=== PATIENT | female | born 1985 | race American Indian/Alaskan Native ===

== ENCOUNTER 2021-01-10 09:19 | Emergency (ER) | payer MEDICARE ==
--- NOTE | 2021-01-10 10:40 | Event Note ---
ED Screening Note Date of service: 01/10/21 Time: 10:39 ED Screening Note: 35-year-old female brought in by EMS for disturbance. Has a history of schizophrenia and refuses to answer any questions. This initial assessment/diagnostic orders/clinical plan/treatment(s) is/are subject to change based on patients health status, clinical progression and re- assessment by fellow clinical providers in the ED. Further treatment and workup at subsequent clinical providers discretion. Patient/guardian urged not to elope from the ED as their condition may be serious if not clinically assessed and managed. Initial orders include:
[2021-01-10 11:39] LABS: Basophils # (Auto) 0.2 K/mm3 (0.0-0.1); Blood Urea Nitrogen 7 mg/dL (7-17); Calcium 9.4 mg/dL (8.4-10.2); Eosinophils % (Auto) 0.7 % (0.0-4.3); Hematocrit 37.5 % (30.3-42.9); Hemoglobin 11.7 gm/dl (10.1-14.3); Hemolysis Index 5; Lymphocytes # (Auto) 1.4 K/mm3 (1.2-5.4); Lymphocytes % (Auto) 22.5 % (13.4-35.0); Mean Corpuscular HGB Conc 31 % (30-34); Monocytes # (Auto) 0.4 K/mm3 (0.0-0.8); Monocytes % (Auto) 6.8 % (0.0-7.3); Platelet Count 289 K/mm3 (140-440); Red Blood Count 5.64 M/mm3 (3.65-5.03); Red Cell Distribution Width 16.6 % (13.2-15.2)
[2021-01-10 11:48] LABS: BUN/Creatinine Ratio 10
[2021-01-10 11:49] LABS: Mean Corpuscular Volume 67 fl (79-97)
[2021-01-10] MEDS ORDERED: POTASSIUM CHLORIDE ER 20 MEQ TAB PO ONE (17:54)
--- NOTE | 2021-01-10 17:56 | Emergency Department Report ---
HPI - General Chief Complaint: Psych Time Seen by Provider: 01/10/21 17:14 - HPI HPI: This patient presents to the emergency department for a mental health evaluation. The patient apparently came by EMS after [facility] was called out for a "disturbance." The patient has never been to this facility previously and is unknown to me. She apparently has a past psychiatric history of schizophrenia. The patient is awake and looking around, but otherwise is nonverbal or will not talk or provide information to anyone. The patient would not talk during triage , to the emergency department psychiatric nurse, or to me during my initial assessment. ED Past Medical Hx - Past Medical History Previous Medical History?: Yes Hx Psychiatric Treatment: Yes (schizophrenia) - Surgical History Additional Surgical History: pt not forthcoming - Social History Smoking Status: Unknown if ever smoked ED Review of Systems ROS: Stated complaint: MH EVAL Other details as noted in HPI Comment: Unobtainable due to pts medical conditions Physical Exam - Physical Exam Vital Signs: Vital Signs 01/10/21 10:14 Temperature 98.4 F Pulse Rate 92 H Respiratory 18 Rate Blood Pressure 160/109 O2 Sat by Pulse 100 Oximetry Physical Exam: GENERAL: The patient is well-developed well-nourished. HENT: Normocephalic. Atraumatic. Patient has moist mucous membranes. EYES: Extraocular motions are intact. NECK: Supple. Trachea is midline. CHEST/LUNGS: Clear to auscultation. There is no respiratory distress noted. HEART/CARDIOVASCULAR: Regular. There is no tachycardia. There is no murmur. ABDOMEN: Abdomen is soft, nontender. Patient has normal bowel sounds. There is no abdominal distention. SKIN: Skin is warm and dry. NEURO: The patient is awake, alert but not cooperative. The patient follows a few select commands. The patient is not talking and therefore unable to assess her speech. MUSCULOSKELETAL: There is no tenderness or deformity. There is no limitation range of motion. ED Course Vital Signs 01/10/21 10:14 Temperature 98.4 F Pulse Rate 92 H Respiratory 18 Rate Blood Pressure 160/109 O2 Sat by Pulse 100 Oximetry ED Medical Decision Making - Lab Data Result diagrams: 01/10/21 10:49 01/11/21 10:59 Lab Results 01/10/21 01/10/21 01/10/21 Range/Units 10:49 10:49 10:49 WBC 6.1 (4.5-11.0) K/mm3 RBC 5.64 H (3.65-5.03) M/mm3 Hgb 11.7 (10.1-14.3) gm/dl Hct 37.5 (30.3-42.9) % MCV 67 L (79-97) fl MCH 21 L (28-32) pg MCHC 31 (30-34) % RDW 16.6 H (13.2-15.2) % Plt Count 289 (140-440) K/mm3 Lymph % (Auto) 22.5 (13.4-35.0) % [place] % (Auto) 6.8 (0.0-7.3) % Eos % (Auto) 0.7 (0.0-4.3) % Baso % (Auto) 3.0 H (0.0-1.8) % Lymph # (Auto) 1.4 (1.2-5.4) K/mm3 [place] # (Auto) 0.4 (0.0-0.8) K/mm3 Eos # (Auto) 0.0 (0.0-0.4) K/mm3 Baso # (Auto) 0.2 H (0.0-0.1) K/mm3 Seg Neutrophils % 67.0 (40.0-70.0) % Seg Neutrophils # 4.1 (1.8-7.7) K/mm3 Sodium 135 L (137-145) mmol/L Potassium 3.4 L (3.6-5.0) mmol/L Chloride 95.6 L (98-107) mmol/L Carbon Dioxide 24 (22-30) mmol/L Anion Gap 19 mmol/L BUN 7 (7-17) mg/dL Creatinine 0.7 (0.6-1.2) mg/dL Estimated GFR > 60 ml/min BUN/Creatinine Ratio 10 % Glucose 190 H (65-100) mg/dL Calcium 9.4 (8.4-10.2) mg/dL HCG, Qual (Negative) Salicylates < 0.3 L (2.8-20.0) mg/dL Acetaminophen (10.0-30.0) ug/mL 01/10/21 01/10/21 Range/Units 10:49 10:49 WBC (4.5-11.0) K/mm3 RBC (3.65-5.03) M/mm3 Hgb (10.1-14.3) gm/dl Hct (30.3-42.9) % MCV (79-97) fl MCH (28-32) pg MCHC (30-34) % RDW (13.2-15.2) % Plt Count (140-440) K/mm3 Lymph % (Auto) (13.4-35.0) % [place] % (Auto) (0.0-7.3) % Eos % (Auto) (0.0-4.3) % Baso % (Auto) (0.0-1.8) % Lymph # (Auto) (1.2-5.4) K/mm3 [place] # (Auto) (0.0-0.8) K/mm3 Eos # (Auto) (0.0-0.4) K/mm3 Baso # (Auto) (0.0-0.1) K/mm3 Seg Neutrophils % (40.0-70.0) % Seg Neutrophils # (1.8-7.7) K/mm3 Sodium (137-145) mmol/L Potassium (3.6-5.0) mmol/L Chloride (98-107) mmol/L Carbon Dioxide (22-30) mmol/L Anion Gap mmol/L BUN (7-17) mg/dL Creatinine (0.6-1.2) mg/dL Estimated GFR ml/min BUN/Creatinine Ratio % Glucose (65-100) mg/dL Calcium (8.4-10.2) mg/dL HCG, Qual Negative (Negative) Salicylates (2.8-20.0) mg/dL Acetaminophen 5.0 L (10.0-30.0) ug/mL - Medical Decision Making This patient presents for a mental health evaluation. She has been nonverbal EMS, triage, and myself. However the patient is awake, ambulatory, and follows a few select commands. I believe that the patient is nonverbal secondary to psychosis versus some medical reason. Labs thus far have been unremarkable except for some mild hypokalemia with a pot assium of 3.4 that was replaced with potassium chloride. We are still waiting for a urine sample for urinalysis and UDS. Vital signs have been reassuring throughout her ED course thus far including being afebrile. The psychiatric casing crew pusher was unable to do an assessment secondary to the patient's noncompliance or being nonverbal secondary to what appears to be psychosis. She will remain in the emergency department for further evaluation by the psychiatric team. Critical Care Time: No Critical care attestation.: If time is entered above; I have spent that time in minutes in the direct care of this critically ill patient, excluding procedure time. ED Disposition Clinical Impression: Acute psychosis Disposition: DC/TX-65 PSY HOSP/PSY UNIT Is pt being admited?: No Condition: Stable Time of Disposition: 18:57
--- NOTE | 2021-01-11 10:19 | Consultation ---
History of Present Illness - Reason for Consult Consult date: 01/11/21 Reason for consult: psychosis - History of Present Psychiatric Illness Per ED Note: This patient presents to the emergency department for a mental health evaluation. The patient apparently came by EMS after [facility] was called out for a "disturbance." The patient has never been to this facility previously and is unknown to me. She apparently has a past psychiatric history of schizophr enia. The patient is awake and looking around, but otherwise is nonverbal or will not talk or provide information to anyone. The patient would not talk during triage, to the emergency department psychiatric nurse, or to me during my initial assessment. Katty Chaudhari is a 35y/o female patient I evaluated today. She is lying down awake. She appears avoidant. She has an irritable look on her face while I'm attempting to talk with her. She does not respond to any questioning when trying to gather information from her. She just stares at me. The sitters state the patient has been this way since coming in. PAST PSYCHIATRIC HISTORY: Unable to obtain PAST MEDICAL HISTORY: None reported Family Psychiatric History: None reported or documented SOCIAL HISTORY Unable to obtain REVIEW OF SYSTEMS Unable to assess MENTAL STATUS EXAMINATION Unable to obtain Diagnoses: Schizophrenia Treatment Plan 1013 Olanzapine 2.5mg po daily Sitter: Defer to primary Medical: per primary Disposition: Recommend acute psychiatric inpatient Will follow. Thank you for this consult Case staffed with Dr. Garcia Medications and Allergies Allergies Allergy/AdvReac Type Severity Reaction Status Date / Time Unable to Assess Allergy Unverified 01/10/21 22:33 Mental Status Exam - Vital signs Last Vital Signs Temp 98.1 F 01/10/21 19:58 Pulse 90 01/10/21 19:58 Resp 16 01/11/21 00:23 BP 166/95 01/10/21 19:58 Pulse Ox 99 01/10/21 19:58 Results Result Diagrams: 01/10/21 10:49 01/10/21 10:49 Abnormal lab results 01/10/21 01/10/21 01/10/21 Range/Units 10:49 10:49 10:49 RBC 5.64 H (3.65-5.03) M/mm3 MCV 67 L (79-97) fl MCH 21 L (28-32) pg RDW 16.6 H (13.2-15.2) % Baso % (Auto) 3.0 H (0.0-1.8) % Baso # (Auto) 0.2 H (0.0-0.1) K/mm3 Sodium 135 L (137-145) mmol/L Potassium 3.4 L (3.6-5.0) mmol/L Chloride 95.6 L (98-107) mmol/L Glucose 190 H (65-100) mg/dL Salicylates < 0.3 L (2.8-20.0) mg/dL Acetaminophen (10.0-30.0) ug/mL 01/10/21 Range/Units 10:49 RBC (3.65-5.03) M/mm3 MCV (79-97) fl MCH (28-32) pg RDW (13.2-15.2) % Baso % (Auto) (0.0-1.8) % Baso # (Auto) (0.0-0.1) K/mm3 Sodium (137-145) mmol/L Potassium (3.6-5.0) mmol/L Chloride (98-107) mmol/L Glucose (65-100) mg/dL Salicylates (2.8-20.0) mg/dL Acetaminophen 5.0 L (10.0-30.0) ug/mL All other labs normal.
--- NOTE | 2021-01-11 10:37 | Event Note ---
Date: 01/11/21 Patient is a 35 years old female admitted to the ER for evaluation of acute psychosis. Patient is calm and cooperative. No overnight issues. Vital signs stable. Labs reviewed and is unremarkable except for slightly low potassium level of 3.4. Patient received K. Dur 40 mEq p.o. Waiting for psychiatric disposition.
[2021-01-11 12:57] LABS: Amphetamine Screen,Urine Negative; Benzodiazepines Screen,Urine Negative; Cannabinoid Screen,Urine Negative; Cocaine Screen,Urine Negative; Methadone Screen,Urine Negative; Opiate Screen,Urine Negative
[2021-01-11 13:14] LABS: Bacteria,Urine 1+ /HPF (Negative); Bilirubin,Urine NEG (Negative); Blood,Urine NEG (Negative); Color,Urine Yellow (Yellow); Mucus,Urine FEW /HPF
[2021-01-11 20:39] VITALS: BP 132/77
== END 2021-01-11 20:35 ==
LOC: ED 09:19
DX: F23 Brief psychotic disorder (principal); F25.9 Schizoaffective disorder, unspecified; Z20.822 Contact with and (suspected) exposure to COVID-19
CPT/HCPCS: 36415; 80048; 80307; 81001; 84132; 84703; 85025; 99285; U0003; 80320; G0480